=== PATIENT | female | born 1980 | race Caucasian/White ===

== ENCOUNTER 2017-10-27 07:28 | Outpatient (CLI) | payer OTHER ==
--- NOTE | 2017-10-27 14:54 | MRI Report ---
EXAM: RIGHT SHOULDER MRI WITHOUT CONTRAST EXAM DATE: 10/27/2017 08:44 AM. CLINICAL HISTORY: Right neck and shoulder pain. Right hand numbness and tingling. COMPARISON: Right shoulder radiography from 08/29/2012. TECHNIQUE: Multiplanar, multisequence T1-weighted and fluid-sensitive sequences of the shoulder witho ut contrast. Other: None. FINDINGS: Acromioclavicular Region: The acromion is type I. The acromioclavicular joint is unremarkable. The co racoacromial and coracoclavicular ligaments are intact. Trace amount of fluid at the subacromial/subd eltoid bursa. Glenohumeral Region: No subluxation. No effusion or loose bodies. The articular cartilage is unremark able. The glenohumeral ligaments and joint capsule are unremarkable. Bone Marrow: No fracture, marrow edema or bone lesions. Labrum: The labrum is unremarkable on this nonarthrographic study. Musculature/Rotator Cuff: There is supraspinatus and infraspinatus tendinosis. The teres minor and cooper bscapularis tendons are unremarkable. No rotator cuff tear. Grade 1 fatty atrophy of the teres minor muscle. No muscle edema. Biceps Tendon: The long head of the biceps tendon and biceps nicanor are intact. Other: The subcutaneous tissues are unremarkable. IMPRESSION: 1. Supraspinatus and infraspinatus tendinosis. No rotator cuff tear. 2. Grade 1 fatty atrophy of the teres minor muscle. [facility] MUSCULOSKELETAL RADIOLOGY SECTION Referring Provider Line: [phone] SITE ID: [id number]
--- NOTE | 2017-10-27 17:24 | MRI Report ---
MRI CERVICAL SPINE WITHOUT CONTRAST INDICATION: 37-year-old female with complaints of right-sided neck and shoulder pain and numbness and tingling in right hand. TECHNIQUE: 1. Sagittal STIR, T1 and T2. 2. Axial T1, T2 and T2*. COMPARISON: Cervical spine CT 08/29/2012. FINDINGS: The coronal localizer suggests a mild dextroconvex curvature with apex near the cervicothoracic junct ion. In the sagittal plane, there is straightening of the cervical alignment with absence of typical lordosis. This may be positional. Alignment is otherwise unremarkable. There is at least mild loss of normal T2 signal from the disks at all levels from C2-C3 to C6-C7, con firming degeneration. However, the disk space heights appear maintained. A small intraosseous hemangioma is identified in the inferior C7 vertebral body. The marrow signal in tensity is otherwise unremarkable. Axial Images: C2-C3: No disk herniation or spinal stenosis. The neural foramina are widely patent. C3-C4: No disk herniation or spinal stenosis. The neural foramina are widely patent. C4-C5: No disk herniation or spinal stenosis. The neural foramina are widely patent. C5-C6: Tiny protrusion centrally and paracentrally to the right with minimal mass effect on the theca l sac. No spinal stenosis. The neural foramina are widely patent. C6-C7: Tiny, shallow, posterior central protrusion with minimal mass effect on the thecal sac. No spi nal stenosis. The neural foramina are widely patent. C7-T1: Normal. The spinal cord has a normal signal intensity throughout. Of note, the sella appears to be expanded. In addition, it appears to be partially filled with CSF. A small amount of pituitary tissue is seen flattened along the floor of the sella. These findings sugg est the possibility of a "empty sella syndrome". Also noted is mucosal thickening in the maxillary and sphenoid sinuses. There appears to be an air-fl uid level in the posterior left maxillary sinus. IMPRESSION: 1. Early multilevel degenerative disk disease with tiny disk herniations at C5-C6 and C6-C7 as descri bed. No associated spinal stenosis. 2. Otherwise unremarkable unenhanced MRI examination of the cervical spine. In particular, there is n o foraminal stenosis and no evidence of cervical nerve root impingement. 3. Air-fluid level left maxillary sinus. In the appropriate clinical setting this could represent act kirti sinusitis. Referring Provider Line: [phone] SITE ID: [id number]
== END 2017-10-27 07:29 | disposition home or self-care (01) ==
LOC: DI 07:28
PROVIDERS: ATTEND General Practice
DX: M50.222 Other cervical disc displacement at C5-C6 level (principal); M50.31 Other cervical disc degeneration, high cervical region; M67.911 Unspecified disorder of synovium and tendon, right shoulder; M62.511 Muscle wasting and atrophy, not elsewhere classified, right shoulder
CPT/HCPCS: 72141